=== PATIENT | male | born 1990 | race Two or more races ===

== ENCOUNTER 2023-02-19 13:10 | Emergency (ER) | payer SELFPAY ==
[2023-02-19] MEDS ORDERED: Ibuprofen 600 MG Tab PO ONE (13:22)
[2023-02-19] MEDS ORDERED: Amoxicillin/Clavulanate K 875-125 MG Tab PO ONE (13:23)
[2023-02-19] MEDS ORDERED: Acetaminophen 500 MG Tab PO ONE (13:23)
== END 2023-02-19 13:40 | disposition home or self-care (01) ==
LOC: MW.ED 13:10
DX: S09.91XA Unspecified injury of ear, initial encounter (principal); X58.XXXA Exposure to other specified factors, initial encounter
CPT/HCPCS: 99282; A9270